=== PATIENT | male | born 1975 | race Caucasian/White ===

== ENCOUNTER 2016-10-19 10:56 | Emergency (ER) | payer MEDICAID ==
[~2016-10-19] VITALS: Ht 172.7 cm; Wt 84.0 kg
[2016-10-19 13:28] VITALS: BP 119/74
== END 2016-10-19 13:54 | disposition home or self-care (01) ==
LOC: ER 13:33
DX: S00.451A Superficial foreign body of right ear, initial encounter (principal); X58.XXXA Exposure to other specified factors, initial encounter; Y93.89 Activity, other specified; Y92.89 Other specified places as the place of occurrence of the external cause; Y99.8 Other external cause status
CPT/HCPCS: 69200; 99284